=== PATIENT | female | born 1995 | race African-American/Black ===

== ENCOUNTER 2018-09-28 03:51 | Emergency (ER) | payer OTHER ==
[~2018-09-28] VITALS: Ht 175.3 cm; Wt 75.3 kg
[2018-09-28 04:19] LABS: BASO % 0 % (0-3); EOS % 0 % (0-3); HEMATOCRIT 39.1 % (36.0-47.0); HEMOGLOBIN 13.3 g/dL (12.0-15.5); LYMPH # 1.2 x10^3/uL (1.0-4.8); LYMPH % 11 % (24-48); MEAN CORPUSCULAR HEMOGLOBIN 32 pg (25-35); MEAN CORPUSCULAR HGB CONC 34 g/dL (31-37); MEAN CORPUSCULAR VOLUME 93 fL (79-100); MONO # 0.7 x10^3/uL (0.0-1.1); MONO % 7 % (0-9); NEUT # 8.2 x10^3uL (1.8-7.7); NEUT % 81 % (31-73); PLATELET COUNT 202 x10^3/uL (140-400); RED CELL DISTRIBUTION WIDTH 12.3 % (11.5-14.5); WHITE BLOOD COUNT 10.1 x10^3/uL (4.0-11.0)
[2018-09-28 04:22] LABS: BILIRUBIN,URINE NEGATIVE (NEG); CLARITY,URINE CLOUDY; COLOR,URINE YELLOW; NITRITE,URINE NEGATIVE (NEG); PH,URINE 5.5; PROTEIN,URINE NEGATIVE (NEG-TRACE); UROBILINOGEN,URINE 0.2 mg/dL (0.2 mg/dL)
--- NOTE | 2018-09-28 04:29 | PHYS DOC ---
Past Medical History Past Medical History: No Pertinent History Past Surgical History: No Surgical History Alcohol Use: Occasionally Drug Use: None Adult General Chief Complaint Chief Complaint: ABDOMINAL PAIN HPI HPI Patient is a 22 year old female who presents with abdominal pain. Patient states she was woken up from her sleep a few hours ago due to a crampy/sharp upper abdominal pain. The pain radiates into her back and she rates it as a 7 out of 10. In addition to her abdominal pain patient is also given vomiting and having diarrhea. She denies any blood in her vomit or diarrhea. She denies any recent sick contacts. Denies recent travel outside the [place]. Nothing makes her belly pain worse. She attempted to drink water to improve her belly pain however it did not help. Patient just last menstrual period was 4 weeks ago. She denies any fevers or chills. Review of Systems Review of Systems Constitutional: Denies fever or chills Eyes: Denies blurry vision or eye pain. HENT: Reports nasal congestion. Denies sore throat. Respiratory: Denies cough or shortness of breath Cardiovascular: Denies chest pain or palpitations GI: Reports abdominal pain, nausea, vomiting, diarrhea. Denies hematochezia or hematemesis : Denies dysuria or hematuria Musculoskeletal: Reports back pain. Denies joint pain Integument: Denies rash or skin lesions Neurologic: Denies headache or focal weakness. Complete systems were reviewed and found to be within normal limits, except as documented in this note. Current Medications Current Medications Current Medications Medications (Trade) Dose Ordered Sig/Collin Start Time Stop Time Status Last Admin Dose Admin Famotidine (Pepcid Vial) 20 mg 1X ONCE 09/28/18 04:30 09/28/18 04:31 DC 09/28/18 04:35 20 MG Ketorolac Tromethamine (Toradol 15mg Vial) 15 mg 1X ONCE 09/28/18 04:30 09/28/18 04:31 DC 09/28/18 04:35 15 MG Ondansetron HCl (Zofran) 4 mg 1X ONCE 09/28/18 04:30 09/28/18 04:31 DC 09/28/18 04:35 4 MG Sodium Chloride 1,000 ml @ 1,000 mls/hr 1X ONCE 09/28/18 04:30 09/28/18 05:29 09/28/18 04:34 1,000 MLS/HR Allergies Allergies Allergies Coded Allergies Type Severity Reaction Last Updated Verified No Known Drug Allergies 09/28/18 No Physical Exam Physical Exam Constitutional: Well developed, well nourished, no acute distress, non-toxic appearance. HENT: Normocephalic, atraumatic, tacky membranes Eyes: EOMI, no conjunctival hemorrhages Neck: Normal range of motion, supple Cardiovascular: Heart rate regular rhythm, no murmur Lungs & Thorax: Bilateral breath sounds clear to auscultation no rhonchi rales or wheezes Abdomen: Normal bowel sounds, soft, right upper quadrant and epigastric abdominal tenderness, negative Estrada sign, McBurney sign, psoas sign, and Rovsing sign, no rebound rigidity or guarding, non-peritoneal Skin: Warm, dry, no erythema. Back: No tenderness, no CVA tenderness. Extremities: No edema, range of motion intact Neurologic: Oriented 3, no focal deficits noted Psychologic: Affect normal, mood normal Current Patient Data Vital Signs Vital Signs Date Time Temp Pulse Resp B/P (MAP) Pulse Ox O2 Delivery O2 Flow Rate FiO2 09/28/18 04:01 97.7 85 16 139/73 (95) 99 Room Air 97.7 Lab Values Laboratory Tests Test 09/28/18 04:10 09/28/18 04:15 09/28/18 04:17 White Blood Count 10.1 x10^3/uL (4.0-11.0) Red Blood Count 4.20 x10^6/uL (3.50-5.40) Hemoglobin 13.3 g/dL (12.0-15.5) Hematocrit 39.1 % (36.0-47.0) Mean Corpuscular Volume 93 fL (79-100) Mean Corpuscular Hemoglobin 32 pg (25-35) Mean Corpuscular Hemoglobin Concent 34 g/dL (31-37) Red Cell Distribution Width 12.3 % (11.5-14.5) Platelet Count 202 x10^3/uL (140-400) Neutrophils (%) (Auto) 81 % (31-73) H Lymphocytes (%) (Auto) 11 % (24-48) L Monocytes (%) (Auto) 7 % (0-9) Eosinophils (%) (Auto) 0 % (0-3) Basophils (%) (Auto) 0 % (0-3) Neutrophils # (Auto) 8.2 x10^3uL (1.8-7.7) H Lymphocytes # (Auto) 1.2 x10^3/uL (1.0-4.8) Monocytes # (Auto) 0.7 x10^3/uL (0.0-1.1) Eosinophils # (Auto) 0.0 x10^3/uL (0.0-0.7) Basophils # (Auto) 0.0 x10^3/uL (0.0-0.2) Sodium Level 141 mmol/L (136-145) Potassium Level 3.0 mmol/L (3.5-5.1) L Chloride Level 103 mmol/L (98-107) Carbon Dioxide Level 25 mmol/L (21-32) Anion Gap 13 (6-14) Blood Urea Nitrogen 10 mg/dL (7-20) Creatinine 1.0 mg/dL (0.6-1.0) Estimated GFR (Cockcroft-Gault) 82.4 BUN/Creatinine Ratio 10 (6-20) Glucose Level 154 mg/dL (70-99) H Calcium Level 9.0 mg/dL (8.5-10.1) Magnesium Level 1.8 mg/dL (1.8-2.4) Total Bilirubin 0.6 mg/dL (0.2-1.0) Aspartate Amino Transferase (AST) 23 U/L (15-37) Alanine Aminotransferase (ALT) 43 U/L (14-59) Alkaline Phosphatase 29 U/L (46-116) L Total Protein 7.8 g/dL (6.4-8.2) Albumin 3.9 g/dL (3.4-5.0) Albumin/Globulin Ratio 1.0 (1.0-1.7) Lipase 97 U/L (73-393) Urine Collection Type Unknown Urine Color Yellow Urine Clarity Cloudy Urine pH 5.5 Urine Specific [place] 1.025 Urine Protein Negative mg/dL (NEG-TRACE) Urine Glucose (UA) Negative mg/dL (NEG) Urine Ketones (Stick) Negative mg/dL (NEG) Urine Blood Moderate (NEG) Urine Nitrite Negative (NEG) Urine Bilirubin Negative (NEG) Urine Urobilinogen Dipstick 0.2 mg/dL (0.2 mg/dL) Urine Leukocyte Esterase Negative (NEG) Urine RBC Occ /HPF (0-2) Urine WBC 1-4 /HPF (0-4) Urine Squamous Epithelial Cells Many /LPF Urine Bacteria Many /HPF (0-FEW) Urine Mucus Marked /LPF POC Urine HCG, Qualitative Hcg negative (Negative) Laboratory Tests 09/28/18 04:10 Laboratory Tests 09/28/18 04:10 EKG EKG [] Radiology/Procedures Radiology/Procedures [] Course & Med Decision Making Course & Med Decision Making 22-year-old female presenting to the emergency department with abdominal pain, nausea, vomiting, and diarrhea. Last known menstrual period was 4 weeks ago. Patient denies any recent sick contacts. Exam revealed epigastric and upper quadrant abdominal pain. No Estrada's sign. Abdomen was non-peritoneal. Labs are obtained and posted to chart. Symptomatic treatment provided with interval improvement. On reexamination patient's nausea and pain are improved. Patient stable for discharge with outpatient follow-up with PCP. Discussed findings and plan with patient and family, who acknowledge understanding and agreement. [] Dragon Disclaimer Dragon Disclaimer This electronic medical record was generated, in whole or in part, using a voice recognition dictation system. Departure Departure Impression: Primary Impression: Nausea, vomiting, and diarrhea Additional Impression: Epigastric pain Disposition: 01 HOME, SELF-CARE Condition: STABLE Referrals: JOE FLOR MD (PCP) Patient Instructions: Abdominal Pain, [id number], Diarrhea, [id number], Diet for Diarrhea, Adult, Nausea and Vomiting, [id number] Scripts Famotidine (PEPCID) 20 Mg Tablet 20 MG PO BID PRN for NAUSEA, #20 TAB Prov: MIGUEL TAYLOR DO 09/28/18 Ondansetron (ONDANSETRON ODT) 4 Mg Tab.rapdis 1 TAB PO PRN Q6-8HRS PRN for NAUSEA, #16 TAB Prov: MIGUEL TAYLOR DO 09/28/18 Hyoscyamine Sulfate (LEVSIN-SL) 0.125 Mg Tab.subl 0.125 MG SL Q6HRS PRN for abdominal pain, #20 TAB Prov: MIGUEL TAYLOR DO 09/28/18 Problem Qualifiers MIGUEL TAYLOR DO Sep 28, 2018 04:29
[2018-09-28] MEDS ORDERED: ONDANSETRON PF 4 MG/2 ML VIAL. IV ONE (04:30)
[2018-09-28] MEDS ORDERED: IV NORMAL SALINE 1000ML BAG 1,000 ML IV ONE (04:30)
[2018-09-28] MEDS ORDERED: FAMOTIDINE 20 MG/2 ML VIAL IVP ONE (04:30)
[2018-09-28] MEDS ORDERED: KETOROLAC 15 MG/ML VIAL. IV ONE (04:30)
[2018-09-28 04:32] LABS: BACTERIA,URINE MANY /HPF (0-FEW); RBC,URINE OCC /HPF (0-2); SQUAMOUS EPITHELIAL CELL,UR MANY /LPF
[2018-09-28 04:33] LABS: ALBUMIN 3.9 g/dL (3.4-5.0); GFR 82.4; MAGNESIUM 1.8 mg/dL (1.8-2.4); TOTAL BILIRUBIN 0.6 mg/dL (0.2-1.0); TOTAL PROTEIN 7.8 g/dL (6.4-8.2)
[2018-09-28] MEDS ORDERED: HYOS0.1265 SL (04:44)
[2018-09-28] MEDS ORDERED: FAMO-63 PO (04:44)
[2018-09-28] MEDS ORDERED: ONDA4TAB12 PO (04:44)
[2018-09-28 05:05] VITALS: BP 137/66
== END 2018-09-28 05:48 | disposition home or self-care (01) ==
LOC: ER 03:51
DX: R10.13 Epigastric pain (principal); R11.2 Nausea with vomiting, unspecified; R19.7 Diarrhea, unspecified
CPT/HCPCS: 36415; 80053; 81001; 81025; 83690; 83735; 85025; 87086; 96361; 96374; 96375; 99284; J1885; J2405; J3490; J7030